=== PATIENT | female | born 1960 | race Caucasian/White ===

== ENCOUNTER 2020-03-08 07:05 | Outpatient (NON) | payer OTHER, SELFPAY ==
[2020-03-09 00:20] LABS: SARS-CoV-2 RNA PCR Negative
== END 2020-03-08 07:06 ==
PROVIDERS: PCP Family Medicine; Visit Provider Family Medicine
DX: R68.89 Other general symptoms and signs (principal); Z20.828 Contact with and (suspected) exposure to other viral communicable diseases
CPT/HCPCS: 87635; C9803; U0003

== ENCOUNTER → 2020-06-19 06:51 | Outpatient (CLI) | payer OTHER, SELFPAY ==
[2020-06-19 17:14] LABS: SARS-CoV-2 RNA PCR Negative
== END ==
PROVIDERS: PCP Family Medicine; Visit Provider Family Medicine
DX: Z20.822 Contact with and (suspected) exposure to COVID-19 (principal)
CPT/HCPCS: C9803; U0003; U0005

== ENCOUNTER 2022-02-17 09:43 | Outpatient (CLI) | payer BC, SELFPAY ==
[2022-02-17 15:25] LABS: Kit Draw Collected
== END 2022-02-17 09:44 | disposition home or self-care (01) ==
LOC: ANHGOSHLAB 09:45
PROVIDERS: PCP Family Medicine; Visit Provider Physician Assistant
DX: Z00.00 Encounter for general adult medical examination without abnormal findings (principal); E78.5 Hyperlipidemia, unspecified; Z79.899 Other long term (current) drug therapy
CPT/HCPCS: 36415

== ENCOUNTER 2022-04-16 00:10 | Day surgery (SDC) | payer BC, SELFPAY ==
[2022-04-01 13:09] VITALS: BMI 23.8
--- NOTE | 2022-04-15 08:25 | P.PNAN_ITS ---
Anes - Initial Pre Proc Eval Procedure: Operation Date: 04/16/22 07:30 Proposed Procedures p Screening Colonoscopy - Edenilson Hartman MD Date/Time: 04/15/22 08:25 Surgeon: Edenilson Hartman MD Pre Op Diagnosis: neoplasm screening Patient Data Age: 61 Gender: F Height: 1.57 m Weight: 59 kg Allergies Allergy/AdvReac Type Severity Reaction Status Date / Time amoxicillin Allergy Unknown Unknown Verified 04/16/22 06:20 Sulfa (Sulfonamide Allergy Unknown Skin Verified 04/16/22 06:20 Antibiotics) Reaction Home Medications Medication Instructions Recorded Confirmed Type fluvoxamine 100 mg tablet See Rx Instructions .Route 10/07/21 04/01/22 Rx .COMPLEX #90 tabs Patient hx anesthesia problems: none Family hx anesthesia problems: none Results Review: All pre-operative results and documents have been reviewed as part of the pre- operative evaluation. [facility] Past Medical History Medical History (Updated 04/15/22 @ 08:25 by Stephen Neumann DO) Anxiety Dyslipidemia History of breast cancer OCD (obsessive compulsive disorder) Surgical History Surgical History H/O dilation and curettage H/O mastectomy Family History Family History Grandparent Family history of hypercholesterolemia Hypertension Father Malignant neoplasm of prostate Hypertension Family history of elevated blood lipids Mother Hypertension Family history of elevated blood lipids Social History Social History (Updated 02/17/22 @ 08:55 by Yonathan De Luna MA) Smoking status: Never smoker Alcohol intake: current Drinks per week: 3 Alcohol use details: vodka Substance use type: does not use Lack of Transportation: No Lack of Food: Never True Current Housing: I Have Housing Concerned About Future Housing: No Difficulty Paying Gas/Electric Bills: No Difficulty Paying for Meds: No Currently Unemployed: No Education: High School Diploma/GED Difficulty w/ Childcare or Family Care: No Living arrangements: alone Anes - Eval Final PreProcedure Day of Procedure 04/15/22 08:25 Patient weight: normal Heart: regular rate and rhythm Lungs: clear to auscultation and normal air movement Airway: Mallampati scale class II Neurological: alert and oriented Last oral intake: >/= 8 hours ASA classification: II Emergent: no Anesthetic plan: proceed Anesthesia type and monitoring: general GIVS and standard monitoring Results Review: All pre-operative results and documents have been reviewed as part of the pre- operative evaluation. Informed Consent: The patient's anesthetic plan and its attendant risks and benefits were discussed with the patient/family/POA. Questions were solicited and answers provided to the satisfaction of the patient/family/POA.
[2022-04-16 06:22] VITALS: BP 121/78; PULSE 74; RESP 18; TEMP 36.6; O2SAT 97
[2022-04-16] MEDS: LACTATED RINGERS 1,000 ML 150 ML IV CONT (06:34)
--- NOTE | 2022-04-16 07:48 | PM.HPGS ---
History of Present Illness History of Present Illness Consent: Risks, benefits, and alternatives have been discussed and questions answered. Patient agrees to proceed with procedure. Chief complaint: neoplasm screening Narrative: Krysta Borrego is a 61 year old female Presents for screening colonoscopy. Patient's current weight appetite and bowel movements are normal. Patient denies abdominal pain. She has had no bleeding. Family history is noncontributory. Review of Systems Review of Systems: Review of systems noncontributory. [facility] Past Medical History Medical History (Updated 04/15/22 @ 08:25 by Stephen Neumann DO) Anxiety Dyslipidemia History of breast cancer OCD (obsessive compulsive disorder) Surgical History Surgical History H/O dilation and curettage H/O mastectomy Family History Family History Grandparent Family history of hypercholesterolemia Hypertension Father Malignant neoplasm of prostate Hypertension Family history of elevated blood lipids Mother Hypertension Family history of elevated blood lipids Social History Social History (Updated 02/17/22 @ 08:55 by Yonathan De Luna MA) Smoking status: Never smoker Alcohol intake: current Drinks per week: 3 Alcohol use details: vodka Substance use type: does not use Lack of Transportation: No Lack of Food: Never True Current Housing: I Have Housing Concerned About Future Housing: No Difficulty Paying Gas/Electric Bills: No Difficulty Paying for Meds: No Currently Unemployed: No Education: High School Diploma/GED Difficulty w/ Childcare or Family Care: No Living arrangements: alone Meds Home Medications and Allergies Home Medications Medication Instructions Recorded Confirmed Type fluvoxamine 100 mg tablet See Rx Instructions .Route 10/07/21 04/01/22 Rx .COMPLEX #90 tabs Allergies Allergy/AdvReac Type Severity Reaction Status Date / Time amoxicillin Allergy Unknown Unknown Verified 04/16/22 06:20 Sulfa (Sulfonamide Allergy Unknown Skin Verified 04/16/22 06:20 Antibiotics) Reaction Vital Signs Vital Signs - 24 hr 04/16/22 06:22 Temperature 98 F Pulse Rate 74 Respiratory Rate 18 Blood Pressure 121/78 Pulse Oximetry 97 Oxygen Delivery Room Air Exam Narrative: Physical exam reveals patient to be alert. Vital signs stable. HEENT exam is unremarkable. Patient is anicteric. Lungs are clear to auscultation and percussion. Heart is without murmur or extra sounds. Abdomen bowel sounds are present soft nontender with no organomegaly. Digital external rectal exam is normal. Assessment and Plan Assessment and plan (1) Screening for colon cancer: Code(s): Z12.11 - Encounter for screening for malignant neoplasm of colon Status: Acute Assessment and Plan: Patient presents today for screening colonoscopy. She appears to be at average risk for colon polyps.
[2022-04-16 07:50] VITALS: BP 103/70; PULSE 70; RESP 19; O2SAT 100
[2022-04-16 08:00] VITALS: BP 113/73; PULSE 67; RESP 17; O2SAT 100
[2022-04-16 08:10] VITALS: BP 111/71; PULSE 63; RESP 20; O2SAT 100
== END 2022-04-16 08:25 | disposition home or self-care (01) ==
PROVIDERS: PCP Family Medicine; Visit Provider Internal Medicine Gastroenterology
PROC: 0DJD8ZZ Inspection of Lower Intestinal Tract, Via Natural or Artificial Opening Endoscopic (ICD-10-PCS; CPT 45378; principal; 2022-04-16 07:30)
DX: Z12.11 Encounter for screening for malignant neoplasm of colon (principal); F41.9 Anxiety disorder, unspecified; E78.5 Hyperlipidemia, unspecified; F42.9 Obsessive-compulsive disorder, unspecified; Z85.3 Personal history of malignant neoplasm of breast; Z90.10 Acquired absence of unspecified breast and nipple; Z82.49 Family history of ischemic heart disease and other diseases of the circulatory system; Z84.89 Family history of other specified conditions; F10.90 Alcohol use, unspecified, uncomplicated; Z79.899 Other long term (current) drug therapy
CPT/HCPCS: 45378; J0461; J2704; J7120

== ENCOUNTER 2022-07-30 14:39 | Outpatient (CLI) | payer BC, SELFPAY ==
[2022-07-30 20:30] LABS: Kit Draw Collected
== END 2022-07-30 14:40 | disposition home or self-care (01) ==
LOC: ANHGOSHLAB 14:43
PROVIDERS: PCP Family Medicine; Visit Provider Nurse Practitioner Family
DX: Z11.3 Encounter for screening for infections with a predominantly sexual mode of transmission (principal)
CPT/HCPCS: 36415

== ENCOUNTER 2022-08-03 11:56 | Outpatient (CLI) | payer BC, SELFPAY ==
[2022-08-08 13:10] LABS: HSV 1 IgM Screen Negative (Negative); HSV 2 IgM Screen Negative (Negative)
== END 2022-08-03 11:57 | disposition home or self-care (01) ==
LOC: ANHGOSHLAB 11:57
PROVIDERS: PCP Family Medicine; Visit Provider Nurse Practitioner Family
DX: Z11.3 Encounter for screening for infections with a predominantly sexual mode of transmission (principal); Z70.8 Other sex counseling
CPT/HCPCS: 36415; 86695; 86696; 87491; 87591

== ENCOUNTER 2023-11-09 17:49 | Outpatient (CLI) | payer BC, SELFPAY ==
--- NOTE | ~2023-11-09 | XR_ITS ---
EXAM: XR foot RT min 3V DATE: 11/09/2023 18:03 HISTORY: fall x4 days ago. pain,swelling,bruising dorsal surface foot . COMPARISON: None available. FINDINGS: Normal mineralization. No fracture or dislocation. No lytic or blastic lesion. Moderate de generative change at the first MTP joint. No erosion or periosteal change. Forefoot soft tissue swell ing. IMPRESSION: No acute osseous finding in the right foot. Reviewed, dictated and finalized at location K.
== END 2023-11-09 17:50 | disposition home or self-care (01) ==
LOC: ANHIMG 17:50
PROVIDERS: PCP Emergency Medicine; Visit Provider Emergency Medicine
DX: M25.571 Pain in right ankle and joints of right foot (principal); M79.89 Other specified soft tissue disorders
CPT/HCPCS: 73630

== ENCOUNTER 2024-10-04 12:34 | Outpatient (CLI) | payer BC, SELFPAY ==
--- OUTSIDE RECORDS SUMMARY | 2024-10-04 12:36 | XMS_ITS | Encounter Summary ---
Author Organization [facility] Healthcare Address [address] [place] [address] Care Team Providers Care Baffle Installer Name Role Phone Foreign Curtis MD Primary Care Provider Cara Benavidez MD Unavailable [phone] Jody Pendleton MD Unavailable [phone] Colt Lebron Primary Care Provider + Encounter Details Date Type Department Care Team (Late st Contact Info) Description 12/19/2019 Telephone [facility] ([facility]) [address] [place] [id number] Cy Marquez, RT Social History Tobacco Use Types Packs/Day Years Used Date Smoking Tobacco: Never Smokeless Tobacco: Never Alcohol Use Standard Drinks/Week Comments Not Currently 0 (1 standard drink = 0.6 oz pur e alcohol) Comments No Sex and Gender Information Value Date Recorded Sex Assigned at Not on file 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 Gender Identity Not on file Sexual Orientation Not on file documented as of this encounter Plan of Treatment Not on file documented as of this encounter Visit Diagnoses Not on filedocumented in this encounter Care Teams Baffle Installer Relationship Specialty Start Date End Date Foreign Curtis MD [address] [place] [address] PCP - General 06/11/16 09/15/22 Colt Lebron PA [address] [place] [address] PCP - General Physician Director Of Undergraduate Admissions 09/16/22 Cara Benavidez MD [address] [place] [address] Surgeon Surgical Oncology 11/28/17 Jody Pendleton MD [address] [place] [address] Drop Wire Stringer Obstetrics and Gynecology 11/28/17 documented as of this encounter
--- OUTSIDE RECORDS SUMMARY | 2024-10-04 12:36 | XMS_ITS | Referral Summary ---
Author Organization [facility] Address [address] [place] [address] Care Team Providers Care Director Of Community Life Name Role Phone Cara Benavidez MD Unavailable [phone] Jody Pendleton MD Unavailable [phone] Colt Lebron Primary Care Provider + Allergies Active Allergy Reactions Criticality Noted Date Comments Amoxicillin Rash Medium 02/27/2017 Sulfa (Sulfonamide Antibiotics) Rash Medium Medications fluvoxaMINE (LUVOX) 100 mg tablet Take 1 tablet (100 mg total) by mouth Active calcium carbonate-vitam in D3 1,500 mg (600mg elemental) -800 unit per tablet Take 2 tablets by mouth nightly Active Active Problems Problem Noted Date Diagnosed Date 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/26/2023 Encounter for screening for malignant neoplasm o f breast 12/20/2018 History of breast cancer 02/15/2018 Resolved Problems Problem Noted Date Diagnosed Date Resolved Date Estrogen receptor positive status (ER+) 12/12/2014 11/19/2017 Malignant neoplasm of female breast 09/21/2012 05/26/2023 Immunizations Immunization Administration Dates Next Due Moderna SARS-CoV-2 Monovalent Vaccination (12+ Y RS) 07/04/2020,06/06/2020 Td, adsorbed 07/28/2018 Social History Tobacco Use Types Packs/Day Years Used Date Smoking Tobacco: Never Smokeless Tobacco: Never Tobacco Cessation:Counseling Given: Not Answered Alcohol Use Standard Drinks/Week Comments Not Currently 0 (1 standard drink = 0.6 oz pur e alcohol) AUDIT-C Answer Date Recorded Frequency of Alcohol Consumption Not on file 05/26/2023 Q2: How many drinks containi ng alcohol do you have on a typical day when you are drinking? 1 or 2 05/26/2023 Q3: How often do you have si x or more drinks on one occasion? 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 HAND Gender Identity Not on file Sexual Orientation Not on file Last Filed Vital Signs Vital Sign Reading Time Taken Comments Blood Pressure 124/73 05/26/2023 11:46 AM BASTER HAND Pulse 64 05/26/2023 11:46 AM BASTER HAND Temperature 36.7 C (98.1 F) 05/26/2023 11:46 AM BASTER HAND Respiratory Rate 18 05/26/2023 11:46 AM BASTER HAND Oxygen Saturation 98% 05/26/2023 11:46 AM BASTER HAND Inhaled Oxygen Concentration - - Weight 60.9 kg (134 lb 4.2 oz) 01/04/2024 2:58 P M CDT Height 157.5 cm (5' 2.01) 01/04/2024 2:58 PM CD T Body Mass Index 24.55 01/04/2024 2:58 PM CDT Plan of Treatment Not on file Medical Devices Implanted Type Area Fittings Finisher Device Identifier Shelf Expiration Date Model / Serial / Lot Lt Breast Biopsy Marker/Clip Implanted:2019 (Quantity not on file) Breast Procedures Procedure Name Priority Date/Time Associated Diagnosis Comments SCREENING MAMMOGRAM LEFT W RENÉ UNILATERAL ONLY Schedule Routine, Read Routine (OP Routine) 01/04/2024 3:28 PM CDT History of breast cancer from Last 3 Months or Most Recently Relevant to Health Maintenance Results * Screening Mammogram Left W René Unilateral Only (01/04/2024 3:28 PM CDT) Anatomical Region Laterality Modality Breast Left Mammography Narrative 01/05/2024 7:25 AM CDT Mammogram Technique: Left Breast Digital Breast Tomosynthesis, Unilateral C-view 2D Screening mammogram. Views obtained: . Computer Aided Detection was performed. Mammogram Findings: The present examination has been compared to prior imaging studies performed at [facility] on 07/23/2020, 09/02/2021 and 11/18/2022. The breast is extremely dense, which lowers the sensitivity of mammography. There is no suspicious abnormality in the left breast. Patient status post contralateral mastectomy for personal history of breast cancer. Impression: There is no mammographic evidence of malignancy. Annual screening mammography is recommended. Consider breast MRI for supplemental screening given the patient's extremely dense breast tissue. OVERALL FINAL ASSESSMENT: BI-RADS CATEGORY 1: Negative. Procedure Note Candice Moss MD - 01/05/2024 Mammogram Technique: Left Breast Digital Breast Tomosynthesis, Unilateral C-view 2D Screening mammogram. Views obtained: . Computer Aided Detection was performed. Mammogram Findings: The present examination has been compared to prior imaging studies performed at [facility] on 07/23/2020, 09/02/2021 and 11/18/2022. The breast is extremely dense, which lowers the sensitivity ofmammography. There is no suspicious abnormality in the left breast. Patient status post contralateral mastectomy for personal history ofbreast cancer. Impression: There is no mammographic evidence of malignancy. Annual screening mammography is recommended. Consider breast MRI for supplemental screening given the patient's extremely dense breasttissue. OVERALL FINAL ASSESSMENT: BI-RADS CATEGORY 1: Negative. Darcy Agosto NP IMG MAMMO PROCEDURES Fin al Result from Last 3 Months or Most Recently Relevant to Health Maintenance Insurance [facility] ACCESS CHOICE ANTHEM ACCESS CHOICE Member Subscriber Plan / Payer (Ef fective 2015-Present) Name:Farshad Elliott Relation to Subscriber:Self Name:FARSHAD ELLIOTT Payer ID:[id number] ([facility]) Type:InOpen Address: [address] CHOICE PLUS ANTHEM ACCESS CHOICE Care Teams Director Of Community Life Relationship Specialty Start Date End Date Colt Lebron PA [address] [place] [address] PCP - General Physician Bull Riveter 09/16/22 Cara Benavidez MD [address] [place] [address] Surgeon Surgical Oncology 11/28/17 Jody Pendleton MD [address] [place] [address] Electorate Officer Obstetrics and Gynecology 11/28/17
--- OUTSIDE RECORDS SUMMARY | 2024-10-04 12:36 | XMS_ITS | Encounter Summary ---
Author Organization [facility] Address [address] [place] [address] Phone Care Team Providers Care Junior Copywriter Name Role Phone Foreign Curtis MD Primary Care Provider [phone] Cara Benavidez MD Unavailable [phone] Jody Pendleton MD Unavailable [phone] Colt Lebron Primary Care Provider + Reason for Visit * Reason Onset Date Comments SCHEDULE UPDATE 06/14/2018 Encounter Details Date Type Department Care Team (Late st Contact Info) Description 06/14/2018 Telephone [facility] Oncology [address] [place] [address] Trish García, [facility] SCHEDULE UPDATE Social History Tobacco Use Types Packs/Day Years Used Date Smoking Tobacco: Never Smokeless Tobacco: Never Comments No Sex and Gender Information Value Date Recorded Sex Assigned at Not on file 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 Gender Identity Not on file Sexual Orientation Not on file documented as of this encounter Plan of Treatment Not on file documented as of this encounter Visit Diagnoses Not on filedocumented in this encounter Care Teams Junior Copywriter Relationship Specialty Start Date End Date Foreign Curtis MD [address] [place] [address] PCP - General 06/11/16 09/15/22 Colt Lebron PA [address] [place] [address] PCP - General Physician Building Principal 09/16/22 Cara Benavidez MD [address] [place] [address] Surgeon Surgical Oncology 11/28/17 Jody Pendleton MD [address] [place] [address] School Laboratory Technician Obstetrics and Gynecology 11/28/17 documented as of this encounter
--- OUTSIDE RECORDS SUMMARY | 2024-10-04 12:36 | XMS_ITS | Clinical Summary ---
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 - (Added by TW Conv) Right Breast cancer (CMS/HCC) 10/2012 Family History Medical History Relation Name Comments Prostate cancer Father No Known Problems Maternal Grandmother Down syndrome Son Relation Name Status Comments Brother Alive Father Maternal Grandmother Son Alive Social History Tobacco Use Types Packs/Day Years [...] on file Legal Sex Female 9:26 PM CD TECHNICIAN Gender Identity Not on file Sexual Orientation Not on file Obstetrics History Last Filed Vital Signs Vital Sign Reading Time Taken Comments Blood Pressure 124/73 05/26/2023 11:46 AM CD TECHNICIAN Pulse 64 05/26/2023 11:46 AM CD TECHNICIAN Temperature 36.7 C (98.1 F) 05/26/2023 11:46 AM CD TECHNICIAN Respiratory Rate 18 05/26/2023 11:46 AM CD TECHNICIAN Oxygen Saturation 98% 05/26/2023 11:46 AM CD TECHNICIAN Inhaled Oxygen Concentration - - Weight 60.9 kg (134 lb 4.2 oz) 01/04/2024 2:58 P M CDT Height 157.5 cm (5' 2.01) 01/04/2024 2:58 PM CD T Body Mass Index 24.55 01/04/2024 2:58 PM CDT Plan of Treatment Health Maintenance Due Date Last Done Comments Cervical Cancer Screening 1961 Colon Cancer Screening-Colonoscopy 1961 Depression Screening 1961 Hepatitis C Screening 1961 Hepatitis B Screening 11/30/1979 Regular Well Visit/Exam 18-64 11/30/1979 Zoster Vaccine (1 of 2) 11/30/2011 DTaP/Tdap/Td Vaccine (1 - Tdap) 07/29/2018 07/28/2018 Covid-19 Vaccine (3 - 2023-25 season) 2023 07/04/2020, 06/06/2020 Influenza Vaccine (Season Ended) 2024 Breast Cancer Screening-Mammogram 01/03/2025 01/04/2024, 11/18/2022, 09/02/2021, Additional history exists Pneumococcal vaccine <65 Aged Out No longer eligible based on patient's age to complete this topic Medical Devices Implanted Type Area Golf Club Weigher Device Identifier Shelf Expiration Date Model / [...] compared to prior imaging studies performed at [facility] on 07/23/2020, 09/02/2021 and 11/18/2022. The [...] compared to prior imaging studies performed at [facility] on 07/23/2020, 09/02/2021 and 11/18/2022. The [...] Most Recently Relevant to Health Maintenance Insurance [employer] CHOICE [employer] CHO[employer] Member Subscriber Plan / Payer (Ef fective 2015-Present) Name:Krysta Elliott Relation to Subscriber:Self Name:KRYSTA ELLIOTT Payer ID:[id number] ([facility]) Type:Cloud Content Address: [place] [phone] [employer] [facility] Care Teams Cable Tender Relationship Specialty Start Date End Date Colt Lebron PA [address] [place] [place] [address] PCP - General Physician Muffler Installer 09/16/22 Cara Benavidez MD [address] [place] [address] Surgeon Surgical Oncology 11/28/17 Jody Pendleton MD [address] [place] [address] Pool Attendant Obstetrics and Gynecology 11/28/17
--- OUTSIDE RECORDS SUMMARY | 2024-10-04 12:36 | XMS_ITS | Encounter Summary ---
Author Organization [facility] Healthcare Address [address] [place] [address] Care Team Providers Care Estimator Project Manager Name Role Phone Foreign Curtis MD Primary Care Provider [phone] Cara Benavidez MD Unavailable Jody Pendleton MD Unavailable [phone] Colt Lebron Primary Care Provider + Encounter Details Date Type Department Care Team (Late st Contact Info) Description 11/01/2019 Telephone [facility] ([facility]) [address] [place], [place] [id number] Cara Benavidez MD [address] [id number] Social History Tobacco Use Types Packs/Day Years Used Date Smoking Tobacco: Never Smokeless Tobacco: Never Alcohol Use Standard Drinks/Week Comments Not Currently 0 (1 standard drink = 0.6 oz pur e alcohol) Comments No Sex and Gender Information Value Date Recorded Sex Assigned at Not on file 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 Gender Identity Not on file Sexual Orientation Not on file documented as of this encounter Plan of Treatment Not on file documented as of this encounter Visit Diagnoses Not on filedocumented in this encounter Care Teams Estimator Project Manager Relationship Specialty Start Date End Date Foreign Curtis MD [address] [place] [address] PCP - General 06/11/16 09/15/22 Colt Lebron PA [address] [place] [address] PCP - General Physician Pediatric Intensive Physician 09/16/22 Cara Benavidez MD [address] [place], [place] [id number] Surgeon Surgical Oncology 11/28/17 Jody Pendleton MD [address] [place], [place] [phone] Client Development Consultant Obstetrics and Gynecology 11/28/17 documented as of this encounter
== END 2024-10-04 12:35 | disposition home or self-care (01) ==
LOC: ANHGOSHLAB 12:35
PROVIDERS: PCP Internal Medicine; Visit Provider Clinical Nurse Specialist
DX: E78.5 Hyperlipidemia, unspecified (principal); F41.9 Anxiety disorder, unspecified; E55.9 Vitamin D deficiency, unspecified; Z13.29 Encounter for screening for other suspected endocrine disorder
CPT/HCPCS: 36415